=== PATIENT | male | born 1975 | race African-American/Black ===

== ENCOUNTER 2018-11-13 18:52 | Emergency (ER) | payer MEDICARE, MEDICAID ==
[~2018-11-13] VITALS: Ht 167.6 cm; Wt 90.0 kg
[2018-11-13 20:25] LABS: BASOPHILS % (AUTO) 0.2 % (0-1); EOSINOPHILS # (AUTO) 0.2 X10'3 (0-0.9); EOSINOPHILS % (AUTO) 1.6 % (0-6); HEMATOCRIT 45.7 % (42.0-52.0); HEMOGLOBIN 15.7 g/dl (14.0-17.9); LYMPHOCYTES # (AUTO) 2.3 X10'3 (1.1-4.8); LYMPHOCYTES % (AUTO) 22.2 % (21-51); MEAN CORPUSCULAR HEMOGLOBIN 29.5 PG (27.0-31.0); MEAN CORPUSCULAR HGB CONC 34.3 g/dL (33.0-36.5); MEAN PLATELET VOLUME 9.4 FL (7.4-10.4); MONOCYTES # (AUTO) 0.4 X10'3 (0-0.9); MONOCYTES % (AUTO) 3.9 % (2-12); NEUTROPHILS # (AUTO) 7.3 X10'3 (1.8-7.7); NEUTROPHILS % (AUTO) 72.1 % (42-75); PLATELET COUNT 197 X10'3 (140-440); RED BLOOD COUNT 5.31 X10'6 (4.70-6.10); RED CELL DISTRIBUTION WIDTH 12.9 % (11.5-14.5); WHITE BLOOD COUNT 10.1 X10'3 (4.5-11.0)
[2018-11-13 20:31] LABS: ALANINE AMINOTRANSFERASE 33 U/L (12-78); ALBUMIN 4.1 G/DL (3.4-5.0); ALBUMIN/GLOBULIN RATIO 1.1 (1.1-1.5); ALKALINE PHOSPHATASE 87 IU/L (46-116); ANION GAP 11 (8-16); ASPARTATE AMINO TRANSFERASE 36 U/L (10-37); BILIRUBIN,TOTAL 0.5 MG/DL (0.1-1.0); BLOOD UREA NITROGEN 12 MG/DL (7-18); BUN/CREATININE RATIO 12.6 (5.4-32.0); CALCIUM 9.2 MG/DL (8.5-10.1); CHLORIDE 101 MMOL/L (99-107); CREATININE 0.95 MG/DL (0.60-1.10); ETHANOL < 0.010 GM/DL (0.0-0.010); GLUCOSE 103 MG/DL (70-104); POTASSIUM 3.5 MMOL/L (3.5-5.1); SODIUM 138 MMOL/L (135-145); TOTAL CARBON DIOXIDE 25.6 MMOL/L (24-32); eGFR 87 ML/MIN
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
[2018-11-13 21:16] LABS: URINE AMPHETAMINE SCREEN POSITIVE (Neg); URINE BARBITUATE SCREEN NEGATIVE (Neg); URINE BENZODIAZEPINES SCREEN NEGATIVE (Neg); URINE CANNABINOID SCREEN NEGATIVE (Neg); URINE COCAINE SCREEN NEGATIVE (Neg); URINE METHADONE SCREEN NEGATIVE (Neg); URINE OPIATE SCREEN NEGATIVE (Neg); URINE PHENCYCLIDINE SCREEN NEGATIVE (Neg)
[2018-11-13] MEDS ORDERED: BUSP10TA11 PO (22:52)
[2018-11-13] MEDS ORDERED: PARO10TA85 PO (22:52)
[2018-11-13] MEDS ORDERED: BUPR100T13 PO (22:52)
[2018-11-13] MEDS ORDERED: QUET400T PO (22:52)
--- NOTE | 2018-11-13 23:07 | NUR ---
Patient is sleeping comfortably and in no distress with sleep mask in place.
[2018-11-13] MEDS ORDERED: haloperidol 5mg tablet PO ONE (23:26)
--- NOTE | 2018-11-14 00:34 | NUR ---
Patient continues to sleep.
--- NOTE | 2018-11-14 02:01 | NUR ---
Patient up to restroom and back to bed.
--- NOTE | 2018-11-14 03:21 | NUR ---
Patient continues to sleep.
--- NOTE | 2018-11-14 04:31 | NUR ---
Patient continues to sleep.
--- NOTE | 2018-11-14 07:20 | NUR ---
PT RESTING ON LEFT SIDE RR EQUAL AND ULABORED
[2018-11-14 07:52] LABS: CLARITY,URINE CLEAR (Clear); COLOR,URINE YELLOW (Yellow); GLUCOSE, URINE NEGATIVE (Neg); KETONES,URINE >=80 mg/dl (Neg); LEUKOCYTE ESTERASE ,URINE NEGATIVE (Neg); NITRITES, URINE NEGATIVE (Neg); OCCULT BLOOD,URINE NEGATIVE (Neg); PROTEIN,URINE NEGATIVE (Neg); UA COLLECTION TYPE CLN CATCH MIDSTREAM; UROBILINOGEN,URINE 0.2 E.U/dL (0.2-1.0)
--- NOTE | 2018-11-14 08:45 | NUR ---
PT AWAKE EATING BREAKFAST
--- NOTE | 2018-11-14 09:49 | NUR ---
PT RESTING ON LEFT SIDE
--- NOTE | 2018-11-14 10:33 | NUR ---
PT RESTING ON BACK RR EQUAL AND UNLABORED
[2018-11-14] MEDS: LORazepam 1 MG tablet PO PRN (10:45)
[2018-11-14] MEDS: busPIRone 5mg tablet PO SCH ×3 (10:45→21:05)
[2018-11-14] MEDS: buPROPion 100mg tablet PO SCH ×2 (11:30→21:04)
[2018-11-14] MEDS: PARoxetine 10mg tablet PO SCH ×2 (11:30→21:04)
--- NOTE | 2018-11-14 13:01 | NUR ---
PT UP TO BR
--- NOTE | 2018-11-14 15:45 | NUR ---
PT STATES THE BUS TICKET HE HAS NEEDS TO BE USED BY 0430 11/15/18. PT STATES HE WILL LOOSE OUT ON THE MONEY IF HE CANT GET DCD. INFORMED PT [facility] IS NOT HERE AT THIS TIME AND HE IS ON A 5150 HOLD. PT ALSO REQUESTS A TAXI TO THE BUS STOP. INFORMED PT AGAIN AT THIS TIME THERE IS NOTHING THAT CAN HAPPEN UNTIL [facility] EVALUATES
--- NOTE | 2018-11-14 17:39 | NUR ---
PT ON THE PHONE. NO NEEDS AT THIS TIME
[2018-11-14] MEDS: quetiapine 100mg tablet PO SCH (21:05)
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
--- NOTE | 2018-11-14 22:44 | NUR ---
Pt asleep on right side. RR 14, even and unlabored. No apparent distress at this time.
--- NOTE | 2018-11-15 01:10 | NUR ---
Pt asleep on back. RR 14, even and unlabored. No apparent distress at this time.
--- NOTE | 2018-11-15 04:02 | NUR ---
Pt asleep back. RR 12, even and unlabored. No apparent distress at this time.
--- NOTE | 2018-11-15 07:00 | NUR ---
Recieved patient in bed sleeping w/o distress.
--- NOTE | 2018-11-15 09:00 | NUR ---
Pt awake in bed after eating breakfast. took AM meds. Short answers to questions. Stopped talking with RN and went to bathroom.
[2018-11-15] MEDS: busPIRone 5mg tablet PO SCH ×3 (09:05→20:46)
[2018-11-15] MEDS: buPROPion 100mg tablet PO SCH ×2 (09:05→20:46)
[2018-11-15] MEDS: PARoxetine 10mg tablet PO SCH ×2 (09:05→20:45)
--- NOTE | 2018-11-15 11:00 | NUR ---
Patient up to bathroom. Calm and cooperative. Concerned about getting date on bus ticket changed so he can leave at a later date.
--- NOTE | 2018-11-15 13:00 | NUR ---
Pt in bed talking with girlfriend on phone. Pleasant and cooperative. Took 1300 med for anxiety. Wants to leave and believes that his GF will use uber to help him get home.
--- NOTE | 2018-11-15 15:00 | NUR ---
Pt in bed sleeping w/o distress.
--- NOTE | 2018-11-15 17:00 | NUR ---
Pt uo to bathroom and returned to bed to rest.
--- NOTE | 2018-11-15 19:37 | NUR ---
TALKING ON PHONE
[2018-11-15] MEDS: quetiapine 100mg tablet PO SCH (20:46)
--- NOTE | 2018-11-15 21:03 | NUR ---
pt up to br voided and bm x1. pt is calm, cooperative and pleasant.
--- NOTE | 2018-11-16 02:26 | NUR ---
PT LYING SUPINE IN BED WITH BLANKETS PULLED TO CHEST. EVEN, UNLABORED BREATHS. NO DISTRESS NOTED. WILL CONTINUE TO MONITOR.
[2018-11-16] MEDS: buPROPion 100mg tablet PO SCH ×2 (07:51→19:56)
[2018-11-16] MEDS: PARoxetine 10mg tablet PO SCH ×2 (07:51→19:56)
[2018-11-16] MEDS: busPIRone 5mg tablet PO SCH (07:51)
--- NOTE | 2018-11-16 07:59 | NUR ---
Pt. woken up by RN. Cooperative with med [place]. Used bathroom to void.
--- NOTE | 2018-11-16 08:40 | NUR ---
Pt.'s "joce Briceño" called. RN told her pt. was asleep. Sonali to call back.
[2018-11-16] MEDS: LORazepam 1 MG tablet PO PRN ×2 (11:46→17:50)
--- NOTE | 2018-11-16 11:49 | NUR ---
Pt. agitated after phone call from "friend." Requesting Ativan. Ativan given. Pt. states he still feels suicidal. RN reassured pt. that he is safe here.
[2018-11-16] MEDS: busPIRone 15mg tablet PO SCH ×2 (13:16→19:55)
--- NOTE | 2018-11-16 13:32 | NUR ---
RN woke pt. up for lunch and 1300 meds.
--- NOTE | 2018-11-16 18:25 | NUR ---
Rec'd report from DENNY Ortiz. Patient is sitting up on side of bed eating dinner, he is A&O x4, THACKER and is appropriate so far. I will continue to monitor.
[2018-11-16] MEDS: quetiapine 100mg tablet PO SCH (19:56)
[2018-11-17] MEDS: busPIRone 15mg tablet PO SCH ×3 (07:38→20:13)
[2018-11-17] MEDS: buPROPion 100mg tablet PO SCH ×2 (07:39→20:14)
[2018-11-17] MEDS: PARoxetine 10mg tablet PO SCH ×2 (07:53→20:13)
--- NOTE | 2018-11-17 07:59 | NUR ---
Pt. tooks meds willingly. Refused PRN Ativan for now. Stated he will ask for it if he needs it. Asked for a book to read.
--- NOTE | 2018-11-17 10:03 | NUR ---
Tamara from [facility] talking with pt. now.
[2018-11-17] MEDS: LORazepam 1 MG tablet PO PRN ×2 (12:18→17:59)
--- NOTE | 2018-11-17 13:48 | NUR ---
Pt. lying in bed with eyes open. No obvious signs of distress noted.
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
[2018-11-17] MEDS: quetiapine 100mg tablet PO SCH (20:13)
--- NOTE | 2018-11-17 22:36 | NUR ---
PT RESTING IN BED. NO S/S OF DISTRESS OR PAIN. WILL CONTINUE TO MONITOR.
--- NOTE | 2018-11-18 02:22 | NUR ---
PATIENT IN BED EYES CLOSED COVERS ON RR EVEN AND UN-LABORED NO S/S OF ACUTE STRESS AT THIS TIME
--- NOTE | 2018-11-18 04:26 | NUR ---
Pt asleep on back; rr 12, even and unlabored. No apparent distress at this time.
--- NOTE | 2018-11-18 09:00 | NUR ---
pt resting quietly, respirations normal
[2018-11-18] MEDS: busPIRone 15mg tablet PO SCH ×3 (09:37→20:44)
[2018-11-18] MEDS: PARoxetine 10mg tablet PO SCH ×2 (09:38→19:48)
[2018-11-18] MEDS: buPROPion 100mg tablet PO SCH ×2 (09:38→19:48)
--- NOTE | 2018-11-18 11:00 | NUR ---
pt requesting to be placed to another facility because he is feeling suicidal.
[2018-11-18] MEDS: LORazepam 1 MG tablet PO PRN ×2 (12:36→19:51)
--- NOTE | 2018-11-18 13:00 | NUR ---
pt resting queitly
[2018-11-18] MEDS ORDERED: acetaminophen 325mg tablet PO ONE (19:40)
[2018-11-18] MEDS: quetiapine 100mg tablet PO SCH (20:44)
--- NOTE | 2018-11-19 01:13 | NUR ---
Patient is sleeping comfortably in a supine position.
--- NOTE | 2018-11-19 03:59 | NUR ---
Patient continues to sleep.
--- NOTE | 2018-11-19 05:44 | NUR ---
Patient continues to sleep.
[2018-11-19] MEDS: PARoxetine 10mg tablet PO SCH ×2 (07:48→20:57)
[2018-11-19] MEDS: buPROPion 100mg tablet PO SCH ×2 (07:48→20:58)
[2018-11-19] MEDS: busPIRone 15mg tablet PO SCH ×3 (07:48→20:57)
--- NOTE | 2018-11-19 08:42 | NUR ---
MEAL TRAY PLACED AT BEDSIDE, PT SITTING UP AT BEDSIDE EATING NOW.
--- NOTE | 2018-11-19 08:50 | NUR ---
PT FINISHED 100% OF BREAKFAST MEAL TRAY, PT AMBULATORY TO THE BATHROOM INDEPENDENTLY WITH STEADY GAIT, PT RETURN TO BED LYING ON RIGHT SIDE RESTING NOW.
--- NOTE | 2018-11-19 10:22 | NUR ---
PT IS SLEEPING, RESPIRATIONS SPONTANEOUS, EVEN AND UNLABORED, NO S/S OF DISTRESS, DISCOMFORT OR AGITATION.
--- NOTE | 2018-11-19 12:20 | NUR ---
PT MEDICATED [facility]PAR PER ORDERS, PT INSTRCTED LUNCH TO ARRIVE APPROX 1330, PT GIVEN MORE ICEWATER, PT AGREEABLE AND COOPERATIVE TO PLAN.
--- NOTE | 2018-11-19 12:26 | NUR ---
PT AMBULATORY TO THE BATHROOM AND GIVEN TOWEL AND TOILETRY SUPPLIES TO CLEAN UP IN BATHROOM.
--- NOTE | 2018-11-19 13:07 | NUR ---
LUNCH MEAL TRAY PLACED AT PT BEDSIDE, PT SITTING UP IN BED EATING NOW
--- NOTE | 2018-11-19 13:25 | NUR ---
PT WANTED TO EXPRESS THAT HE IS FEELING THE SAME, NO IMPROVEMENT IN HIS DEPRESSION, IS REQUESTING TO BE SENT "TO A HOSPITAL FOR HELP." PT ASKED FOR EYE MASK FOR SLEEP.
--- NOTE | 2018-11-19 13:55 | NUR ---
PT IS SLEEPING, RESPIRATIONS SPONTANEOUS, EVEN AND UNLABORED, NO S/S OF DISTRESS, DISCOMDFORT OR AGITATION, PT GIVEN EYE MASK TO ASSIST WITH PT SLEEPING.
--- NOTE | 2018-11-19 15:25 | NUR ---
PT TELEPSYCH REVIEWED RECOMMENDATION WITH DR CHILD, RECEIVED VERBAL ORDER FOR HALDOL 5 MG PO Q 6 HOURS PRN AGITATION, PT STATES HE IS HAVING INCREASED ANXIETY WILL GIVE PT ATIVAN 1 MG PRN PER ORDERS AT THIS TIME.
[2018-11-19] MEDS: LORazepam 1 MG tablet PO PRN ×2 (15:28→21:41)
--- NOTE | 2018-11-19 17:15 | NUR ---
WHILE TAKING THE PATIENT'S VITALS I ASKED BRAD HOW HE WAS FEELING. HE EXPRESSED TO ME THAT HE IS FEELING VERY ANGRY AND ANXIOUS. HE SAID THAT HE IS THINKING ABOUT WHEN HE GETS RELEASED FROM THE HOSPITAL, THAT HE WANTS TO GET A GUN AND SHOOT UP NEIGHBORHOODS. I SAID, WHY ARE YOU HAVING THESE THOUGHTS? HE SAID THAT HE DOESN'T THINK THAT HIS MEDICATIONS ARE HELPING HIM. I ASKED HIM, DO YOU KNOW WHAT MEDICATIONS WORK BEST FOR YOU? IS THERE SOMETHING IN THE PAST THAT YOU HAVE TAKEN THAT DOESN'T MAKE YOU HAVE THOSE KINDS OF THOUGHTS? HE SAID, YES. HALDOL WORKS FOR ME. I TOOK THAT WHEN I WAS AT [place]. I SAID TO HIM I WOULD TALK TO HIS NURSE, AND THAT WE COULD POSSIBLY GET HIM TO DO ANOTHER TELEPYSCH CONSULTATION TO TRY AND GET HIM ON SOMETHING DIFFERENT. I SPOKE TO AMITA ABOUT MY CONVERSATION WITH THE PATIENT AND ASKED IF WE COULD GET HIM ANOTHER TELEPYSCH CONSULTATION TO HELP HIM WITH HIS MEDICATION.
[2018-11-19] MEDS: haloperidol 5mg tablet PO PRN (17:24)
--- NOTE | 2018-11-19 17:27 | NUR ---
MEDICATED PT WITH 5 MG PO HALDOL PT STATED TO [facility] THAT HE WAS FEELING ANGRY AND THAT HE WOULD HURT PEOPLE IF HE LEFT HERE, I ASKED PT AND PT STATES HE DOES NOT FEEL IS CURRENT MEDICATIONS ARE WORKING ANYMORE AND THAT HALDOL WORKED IN THE PAST WHEN HE TOOK IT IN 2005, BUT WAS UNSURE OF DOSE BUT DID STATE THAT HE RECIEVED HALDOL IM WHEN "I GOT ANGRY" ATIVAN AND HALDOL ARE PRN PER TELEPSYCH AT THIS TIME, DR HAQUE INFORMED OF PT STATEMENTS.
--- NOTE | 2018-11-19 17:40 | NUR ---
DISCUSSED HOW LONG PT HAS BEEN IN ED AND CURRENT PSYCH MEDICATIONS, PER SHABNAM NORWOODPSYCH PT STATES CURRENT MEDS NO LONGER WORKING RE-EVALUATE MEDICATIONS
--- NOTE | 2018-11-19 17:57 | NUR ---
GAVE REPORT TO TELEPSYCH SOC DR PICKETT, MONITOR AT BEDSIDE READY FOR RE-EVALUATION.
--- NOTE | 2018-11-19 19:00 | NUR ---
patient eating dinner at bedside no observable s/s of acute stress at this time
[2018-11-19] MEDS: quetiapine 100mg tablet PO SCH (20:58)
--- NOTE | 2018-11-19 21:33 | NUR ---
patient in bed eye cover on, blanket on, no observable s/s of acute stress at this time
--- NOTE | 2018-11-19 23:36 | NUR ---
PATIENT IN BED EYES CLOSED COVERS OFF RR EVEN UN LABORED NO OBSERVABLE S/S OF ACUTE STRESS AT THIS TIME
--- NOTE | 2018-11-20 01:41 | NUR ---
PATIENT LYING SUPINE IN BED COVERS OFF EYES CLOSED RR EVEN AND UN-LABORED NO OBSERVABLE S/S OF ACUTE STRESS AT THIS TIME
--- NOTE | 2018-11-20 03:39 | NUR ---
patient lying supine in bed covers off eyes closed rr even un labored no observable s/s of acute stress at this time
--- NOTE | 2018-11-20 04:52 | NUR ---
patient lying supine in bed covers on eyes closed rr even un labored no observable s/s of acute stress at this time
[2018-11-20 05:30] VITALS: BP 106/70
--- NOTE | 2018-11-20 06:35 | NUR ---
Patient sleeping supine. No distress observed. Continue to monitor.
--- NOTE | 2018-11-20 07:44 | NUR ---
Patient continues to sleep. No distress observed. Continue to monitor.
[2018-11-20] MEDS: busPIRone 15mg tablet PO SCH ×2 (08:42→12:05)
[2018-11-20] MEDS: buPROPion 100mg tablet PO SCH (08:42)
[2018-11-20] MEDS: PARoxetine 10mg tablet PO SCH (08:42)
--- NOTE | 2018-11-20 09:44 | NUR ---
Patient speaking to KERMIT Mcdonald. No distress observed. Continue to monitor.
[2018-11-20] MEDS: haloperidol 5mg tablet PO PRN (11:14)
== END 2018-11-20 12:35 | disposition home or self-care (01) ==
LOC: ER 18:54
DX: F25.9 Schizoaffective disorder, unspecified (principal); F43.10 Post-traumatic stress disorder, unspecified; F15.10 Other stimulant abuse, uncomplicated; I25.2 Old myocardial infarction; F31.9 Bipolar disorder, unspecified; Z88.8 Allergy status to other drugs, medicaments and biological substances; Z79.899 Other long term (current) drug therapy; Z59.0 Homelessness
CPT/HCPCS: 36415; 80053; 80305; 80320; 81003; 85025; 99285